=== PATIENT | female | born 1990 | race Caucasian/White ===

== ENCOUNTER 2021-12-17 08:05 | Emergency (ER) | payer OTHER ==
[2021-12-17 08:47] LABS: BASOPHIL 0.8 % (0-2); EOSINOPHIL 1.1 % (0-5); HCT 40.6 % (37.0-47.0); HGB 13.8 g/dl (12.5-16.0); LYMPHOCYTE 32.2 % (15-48); MCH 31.7 pg (25.0-31.0); MCV 93.1 fL (78.0-100.0); MONOCYTE 7.1 % (0-12); MPV 9.5 fL (6.0-9.5); NEUTROPHIL 58.5 % (41-80); NRBC 0; PLT 298 K/uL (150-400); RBC 4.36 M/uL (4.20-5.40); RDW 12.4 % (11.5-14.0); WBC 7.1 K/uL (4.0-10.5)
[2021-12-17 09:03] LABS: ALBUMIN 4.1 g/dL (3.4-5.0); BILIRUBIN - TOTAL 0.3 mg/dL (0.2-1.0); BUN/CREAT RATIO (CALC) 19.5 RATIO; CREATININE 0.77 mg/dL (0.51-0.95); GLOBULIN (CALCULATION) 3.4 g/dL; TOTAL PROTEIN 7.5 g/dL (6.4-8.2)
== END 2021-12-17 09:50 | disposition home or self-care (01) ==
LOC: FER 08:05
PROVIDERS: Emergency Medicine
DX: K29.70 Gastritis, unspecified, without bleeding (principal); Z88.8 Allergy status to other drugs, medicaments and biological substances
CPT/HCPCS: 36415; 80053; 83690; 85025; 99284